=== PATIENT | female | born 1995 | race Caucasian/White ===

== ENCOUNTER 2020-12-24 11:21 | Emergency (ER) | payer OTHER, SELFPAY ==
[2020-12-24 11:25] VITALS: BP 119/86; PULSE 88; RESP 16; TEMP 36.6; O2SAT 99; BMI 28.3
--- NOTE | 2020-12-24 11:50 | HMH.EDUTC ---
[facility] [place] Disposition Clinical Impression: Poison anna dermatitis Disposition: Home, Self-Care Condition on Discharge: Good Instructions: Poison Anna, Poison [place], Poison [place], DI for Poison Anna Allergy, Prednisone Additional Instructions: Antiseptic or drying creams or ointments: These medicines may be used to dry out the rash and decrease the itching. These products may be available without a doctor's order. Steroids: This medicine helps decrease itching and inflammation. It can be given as a cream to apply to your skin or as a pill. Antihistamines: This medicine may help decrease itching and help you sleep. It is available without a doctor's order. Keep your rash clean and dry: Wash it with soap and water. Gently pat it dry with a clean towel. Try not to scratch or rub your rash: This can cause your skin to become infected. Use a compress on your rash: Dip a clean washcloth in cool water. Wring it out and place it on your rash. Leave the washcloth on your skin for 15 minutes. Do this at least 3 times per day. Take a cornstarch or oatmeal bath: If your rash is too large to cover with wet washcloths, take 3 or 4 cornstarch baths daily. Mix 1 pound of cornstarch with a little water to make a paste. Add the paste to a tub full of water and mix well. You may also use colloidal oatmeal in the bath water. Use lukewarm water. Avoid hot water because it may cause your itching to increase. Prevent a poison anna rash in the future: Wear skin protection: Wear long pants, a long-sleeved shirt, and gloves. Use a skin block lotion to protect your skin from poison anna oil. You can find this at a drugstore without a prescription. Wash clothing after possible exposure: If you think you have been near a poison anna plant, wash the clothes you were wearing separately from other clothes. Rinse the washing machine well after you take the clothes out. Scrub boots and shoes with warm, soapy water. Dry clean items and clothing that you cannot wash in water. Poison anna oil is sticky and can stay on surfaces for a long time. It can cause a new rash even years later. Bathe your pet: Use warm water and shampoo on your pet's fur. This will prevent the spread of oil to your skin, car, and home. Wear long sleeves, long pants, and gloves while washing pets or any items that may have oil on them. Reduce exposure to poison anna: Do not touch plants that look like poison anna. Keep your yard free of poison anna. While protecting your skin, remove the plant and the roots. Place them in a plastic bag and seal the bag tightly. Do not burn poison anna plants: This can spread the oil through the air. If you breathe the oil into your lungs, you could have swelling and serious breathing problems. Oil that clings to the fire avtar can land on your skin and cause a rash. You cannot spread poison anna by touching your rash or the liquid from your blisters. Poison anna is spread only if you scratch your skin while it still has oil on it. You may think your rash is spreading because new rashes appear over a number of days. This happens because areas covered by thin skin break out in a rash first. Your face or forearms may develop a rash before thicker areas, such as the palms of your hands. Prescriptions: predniSONE [Prednisone 10mg Tab Dose-Pack] 10 mg PO UD DOSE PK 6 Days #21 pack Prescription Printed Referrals: Allen Khan DO [Primary Care Provider] - As needed Time of Disposition: 12:32 Medical Decision Making - Lucho Inquiry Pt receiving controlled substance: No Lucho was queried for this patient: No Vital Signs: 12/24/20 11:25 12/24/20 12:14 Temperature 97.8 F 97.8 F Temperature Source Oral Pulse Rate 88 Pulse Rate [Right Brachial] 88 Respiratory Rate 16 16 Blood Pressure 119/86 Blood Pressure [Right Arm] 119/86 Blood Pressure Mean [Right Arm] 97 Blood Pressure Source [Right Arm] Automatic Cuff Blood Pressure Position [Right Arm] Sitting 02 Sat by Pulse Oximetry 99 Oxyg
[2020-12-24 12:07] LABS: UTC Pregnancy Test, Urine Negative (Negative)
[2020-12-24 12:14] VITALS: BP 119/86; PULSE 88; RESP 16; TEMP 36.6; O2SAT 99
== END 2020-12-24 12:25 | disposition home or self-care (01) ==
PROVIDERS: Emergency Provider Nurse Practitioner; PCP Family Medicine
DX: L23.7 Allergic contact dermatitis due to plants, except food (principal)
CPT/HCPCS: 81025; 96372; 99202; G0463